=== PATIENT | male | born 1990 | race Two or more races ===

== ENCOUNTER 2024-10-25 19:24 | Emergency (ER) | payer OTHER ==
[~2024-10-25] VITALS: Ht 182.9 cm; Wt 122.5 kg
[2024-10-25 22:16] VITALS: BP 155/71; TEMP 98.3; O2SAT 98
== END 2024-10-25 22:17 | disposition home or self-care (01) ==
LOC: ER 19:28
DX: S80.211A Abrasion, right knee, initial encounter (principal); S80.212A Abrasion, left knee, initial encounter; M25.522 Pain in left elbow; M25.571 Pain in right ankle and joints of right foot; M79.642 Pain in left hand; Z88.0 Allergy status to penicillin; Z88.5 Allergy status to narcotic agent; V29.99XA Rider (driver) (passenger) of other motorcycle injured in unspecified traffic accident, initial encounter; Y93.89 Activity, other specified; Y92.89 Other specified places as the place of occurrence of the external cause; Y99.8 Other external cause status
CPT/HCPCS: 73564-TC; 73610-TC